=== PATIENT | male | born 2000 | race Caucasian/White ===

== ENCOUNTER → 2018-06-21 15:22 | Outpatient (CLI) | payer OTHER, SELFPAY ==
[2018-06-21 17:14] LABS: Thyroid Stim Hormone (TSH) 1.33 uIU/mL (0.358-3.74)
== END ==
PROVIDERS: Referring Provider Nurse Practitioner Primary Care; Visit Provider Nurse Practitioner Primary Care
DX: R63.8 Other symptoms and signs concerning food and fluid intake (principal)
CPT/HCPCS: 36415; 84443